=== PATIENT | female | born 1995 | race Caucasian/White ===

== ENCOUNTER 2017-02-25 15:26 | Emergency (ER) | payer BC ==
[2017-02-25 15:47] VITALS: PULSE 62; RESP 16; TEMP 97.9
[2017-02-25] MEDS ORDERED: NS 1,000 ML IV ONE (16:34)
[2017-02-25 16:36] LABS: % IMMATURE GRANULYOCYTES 0.3 % (0.0-1.1); ABSOLUTE IMMATURE GRANULOCYTES 0.02 10^3/uL (0.00-0.10); ADD DIFF? NO; ADD MORPH? NO; ADD SCAN? NO; ATYPICAL LYMPHOCYTE FLAG 10 (0-99); FRAGMENT RBC FLAG 0 (0-99); HEMOGLOBIN 13.6 g/dL (12.6-16.3); LEFT SHIFT FLG 0 (0-99); LIPEMIA HEMOLYSIS FLAG 90 (0-99); MEAN CELL HEMOGLOBIN 32.9 pg (27.9-34.1); MEAN CELL HEMOGLOBIN CONCENTR. 36.8 g/dL (32.4-36.7); MEAN CELL VOLUME 89.6 fL (81.5-99.8); MEAN PLATELET VOLUME 9.6 fL (8.7-11.7); PLATELET CLUMPS FLAG 20 (0-99); PLATELET COUNT 197 10^3/uL (150-400); RED BLOOD CELL COUNT 4.13 10^6/uL (4.18-5.33); RED CELL DISTRIBUTION WIDTH 11.4 % (11.5-15.2)
--- NOTE | 2017-02-25 16:38 | EDPHY ---
H & P Stated Complaint: abd pain nauses constipation Time Seen by Provider: 02/25/17 15:59 HPI/ROS: CHIEF COMPLAINT: Abdominal pain HISTORY OF PRESENT ILLNESS: The patient is a 21-year-old female who comes to the emergency department complaining of diffuse abdominal pain. 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 She states that she has left work early 3 times this week because of abdominal pain. She describes it as intermittent and crampy and is passing a lot of gas. She thinks that she has IBS C but has never been officially diagnosed. No fevers. No vomiting. She states that today her pain was worse than usual and she is doubled over. She has a history of liver biopsy as an for mass that was seen on her liver that was found to be benign. She denies any other significant medical history. No urinary symptoms. She denies risk of . She is on control. No vaginal bleeding or discharge REVIEW OF SYSTEMS: Constitutional: denies: chills, fever, recent illness, recent injury EENTM: denies: blurred vision, double vision, nose congestion Respiratory: denies: cough, shortness of breath Cardiac: denies: chest pain, irregular heart rate, lightheadedness, palpitations Gastrointestinal/Abdominal: See HPI Genitourinary: denies: dysuria, frequency, hematuria, pain Musculoskeletal: denies: joint pain, muscle pain Skin: denies: lesions, rash, jaundice, bruising Neurological: denies: headache, numbness, paresthesia, tingling, dizziness, weakness Hematologic/Lymphatic: denies: blood clots, easy bleeding, easy bruising Immunologic/allergic: denies: HIV/AIDS, transplant EXAM: GENERAL: Well-appearing, well-nourished and in no acute distress. HEAD: Atraumatic, normocephalic. EYES: Pupils equal round and reactive to light, extraocular movements intact, sclera anicteric, conjunctiva are normal. ENT: TMs normal, nares patent, oropharynx clear without exudates. Moist mucous membranes. NECK: Normal range of motion, supple without lymphadenopathy or JVD. LUNGS: Breath sounds clear to auscultation bilaterally and equal. No wheezes rales or rhonchi. HEART: Regular rate and rhythm without murmurs, rubs or gallops. ABDOMEN: Scar visible, Soft, nontender, normoactive bowel sounds. No guarding , no rebound. No masses appreciated. BACK: No CVA tenderness, no spinal tenderness, step-offs or deformities EXTREMITIES: Normal range of motion, no pitting or edema. No clubbing or cyanosis. NEUROLOGICAL: Cranial nerves II through XII grossly intact. Normal speech, normal gait. 5/5 strength, normal movement in all extremities, normal sensation PSYCH: Normal mood, normal affect. SKIN: Warm, dry, normal turgor, no visible rashes or lesions. Source: Patient Exam Limitations: No limitations - Personal History LMP (Females 10-55): Irregular Current Tetanus Diphtheria and Acellular Pertussis (TDAP): Yes - Medical/Surgical History Hx Asthma: No Hx Chronic Respiratory Disease: No Hx Diabetes: No Hx Cardiac Disease: No Hx Renal Disease: No Hx Cirrhosis: No Hx Alcoholism: No Hx HIV/AIDS: No Hx Splenectomy or Spleen Trauma: No Other PMH: depression, left ankle pain - Family History Significant Family History: No pertinent family hx - Social History Smoking Status: Never smoked Alcohol Use: Sober Drug Use: None Constitutional: Initial Vital Signs Temperature (C) 36.6 C 02/25/17 15:44 Heart Rate 62 02/25/17 15:44 Respiratory Rate 16 02/25/17 15:44 Blood Pressure 113/87 H 02/25/17 15:44 O2 Sat (%) 100 02/25/17 15:44 O2 Delivery Mode Room Air Allergies/Adverse Reactions: No Known Allergies Allergy (Unverified 02/25/17 15:42) Home Medications: Medication Instructions Recorded Dicyclomine [Bentyl 20 MG (*)] 20 mg PO QID PRN #30 tab 02/25/17 Linzess 02/25/17 Meloxicam 02/25/17 Microgestin 02/25/17 Prozac 10 MG (*) 02/25/17 Synthroid 02/25/17 Medical Decision Making - Diagnostics Imaging Results: Imaging Impressions Abdomen CT 02/25/17 16:34 Impression: 1. No acute findings in the abdomen or pelvis. 2. 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 3. Additional findings as above. Findings discussed with Dr. Law Chester on 02/25/2017 at 1743 hours. Imaging: Discussed imaging studies w/ crew caller Radiologist ED Course/Re-evaluation: The patient's abdominal exam is benign. I performed a bedside ultrasound revealed normal appearing gallbladder with no stones. I will obtain a CT scan because of her right lower quadrant pain evaluated previously by her PCP 5:50 p.m. the patient is feeling better. She still has cramping pain. I will treat her with Toradol in bed until. We discussed the CT and lab results which are reassuring. She is happy but is frustrated that we do not have an answer. Father is a oncologist. 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 I will refer her to GI. She knows Dr. Alejo personally. She understands and agrees with this plan. She declines further workup at this time. Differential Diagnosis: Partial list of the Differential diagnosis considered include but were not limited to; gallstone, constipation, irritable bowel disease and although unlikely based on the history and physical exam, I also considered appendicitis , cholecystitis, kidney stone, urinary tract infection, , ovarian cyst , ovarian torsion. I discussed these differential diagnoses and the plan with the patient as well as the usual and expected course. The patient understands that the diagnosis is provisional and that in medicine we are not always correct and that further workup is often warranted. Usual and customary warnings were given. All of the patient's questions were answered. The patient was instructed to return to the emergency department should the symptoms at all worsen or return, otherwise to followup with the physician as we discussed. - Data Points Laboratory Results: Laboratory Results 02/25/17 16:26 02/25/17 16:26 02/25/17 02/25/17 02/25/17 16:26 16:26 16:26 WBC RBC Hgb Hct MCV MCH MCHC RDW Plt Count MPV Neut % (Auto) Lymph % (Auto) Yell % (Auto) Eos % (Auto) Baso % (Auto) Nucleat RBC Rel Count Absolute Neuts (auto) Absolute Lymphs (auto) Absolute Monos (auto) Absolute Eos (auto) Absolute Basos (auto) Absolute Nucleated RBC Immature Gran % Immature Gran # Sodium Potassium Chloride Carbon Dioxide Anion Gap BUN Creatinine Estimated GFR Glucose Calcium Total Bilirubin Cancelled Conjugated Bilirubin Cancelled Unconjugated Bilirubin Cancelled AST Cancelled ALT Cancelled Alkaline Phosphatase Cancelled Total Protein Cancelled Albumin Cancelled Lipase Cancelled Beta HCG, Qual NEGATIVE Beta HCG, Quant Urine Color YELLOW Urine Appearance HAZY Urine pH 6.0 (5.0-7.5) Ur Specific Beatrice 1.019 (1.002-1.030) Urine Protein NEGATIVE (NEGATIVE) Urine Ketones NEGATIVE (NEGATIVE) Urine Blood NEGATIVE (NEGATIVE) Urine Nitrate NEGATIVE (NEGATIVE) Urine Bilirubin NEGATIVE (NEGATIVE) Urine Urobilinogen NEGATIVE EU EU (0.2-1.0) Ur Leukocyte Esterase 1+ H (NEGATIVE) Urine RBC 1-3 /hpf /hpf (0-3) Urine WBC 1-3 /hpf /hpf (0-3) Ur Epithelial Cells TRACE /lpf /lpf (NONE-1+) Ur Renal Epithelial Cell Urine Crystals Ammonium Urate Crystals Calcium Carbonate Cryst Calcium Phosphate Cryst Calcium Oxalate Crystal Leucine Crystals Cystine Crystals Uric Acid Crystals Triple Phos Crystals Sulfonamide Crystals Cholesterol Crystals Tyrosine Crystals Bilirubin Crystals Amorphous Sediment Urine Bacteria Epithelial Casts Fatty Casts Hyaline Casts Granular Casts Waxy Casts Broad Casts RBC Casts WBC Casts Urine Mucus TRACE /lpf /lpf (NONE-1+) Urine Trichomonas Urine Yeast Urine Sperm Ur Oval Fat Bodies Ur Free Fat Droplets Urine Glucose NEGATIVE (NEGATIVE) Urine Comment 02/25/17 02/25/17 02/25/17 16:26 16:26 16:22 WBC 7.45 10^3/uL 10^3/uL (3.80-9.50) RBC 4.13 10^6/uL L 10^6/uL (4.18-5.33) Hgb 13.6 g/dL g/dL (12.6-16.3) Hct 37.0 % L % (38.0-47.0) MCV 89.6 fL fL (81.5-99.8) MCH 32.9 pg pg (27.9-34.1) MCHC 36.8 g/dL H g/dL (32.4-36.7) RDW 11.4 % L % (11.5-15.2) Plt Count 197 10^3/uL 10^3/uL (150-400) MPV 9.6 fL fL (8.7-11.7) Neut % (Auto) 69.8 % % (39.3-74.2) Lymph % (Auto) 21.5 % % (15.0-45.0) Yell % (Auto) 5.4 % % (4.5-13.0) Eos % (Auto) 2.6 % % (0.6-7.6) Baso % (Auto) 0.4 % % (0.3-1.7) Nucleat RBC Rel Count 0.0 % % (0.0-0.2) Absolute Neuts (auto) 5.21 10^3/uL 10^3/uL (1.70-6.50) Absolute Lymphs (auto) 1.60 10^3/uL 10^3/uL (1.00-3.00) Absolute Monos (auto) 0.40 10^3/uL 10^3/uL (0.30-0.80) Absolute Eos (auto) 0.19 10^3/uL 10^3/uL (0.03-0.40) Absolute Basos (auto) 0.03 10^3/uL 10^3/uL (0.02-0.10) Absolute Nucleated RBC 0.00 10^3/uL 10^3/uL (0-0.01) Immature Gran % 0.3 % % (0.0-1.1) Immature Gran # 0.02 10^3/uL 10^3/uL (0.00-0.10) Sodium 140 mEq/L mEq/L (134-144) Potassium 4.2 mEq/L mEq/L (3.5-5.2) Chloride 102 mEq/L mEq/L (97-110) Carbon Dioxide 27 mEq/l mEq/l (22-31) Anion Gap 11 mEq/L mEq/L (8-16) BUN 14 mg/dL mg/dL (7-23) Creatinine 0.9 mg/dL mg/dL (0.6-1.0) Estimated GFR > 60 Glucose 106 mg/dL H mg/dL (70-100) Calcium 9.1 mg/dL mg/dL (8.5-10.4) Total Bilirubin 0.5 mg/dL mg/dL (0.1-1.4) Conjugated Bilirubin 0.3 mg/dL mg/dL (0.0-0.5) Unconjugated Bilirubin 0.2 mg/dL mg/dL (0.0-1.1) AST 28 IU/L IU/L (14-46) ALT 36 IU/L IU/L (9-52) Alkaline Phosphatase 44 IU/L IU/L (38-126) Total Protein 6.8 g/dL g/dL (6.3-8.2) Albumin 3.9 g/dL g/dL (3.5-5.0) Lipase 132 IU/L IU/L (23-300) Beta HCG, Qual Beta HCG, Quant < 2.39 mIU/mL mIU/mL (0.00-4.83) Urine Color Urine Appearance Urine pH Ur Specific Beatrice Urine Protein Urine Ketones Urine Blood Urine Nitrate Urine Bilirubin Urine Urobilinogen Ur Leukocyte Esterase Urine RBC Cancelled Urine WBC Cancelled Ur Epithelial Cells Cancelled Ur Renal Epithelial Cell Cancelled Urine Crystals Cancelled Ammonium Urate Crystals Cancelled Calcium Carbonate Cryst Cancelled Calcium Phosphate Cryst Cancelled Calcium Oxalate Crystal Cancelled Leucine Crystals Cancelled Cystine Crystals Cancelled Uric Acid Crystals Cancelled Triple Phos Crystals Cancelled Sulfonamide Crystals Cancelled Cholesterol Crystals Cancelled Tyrosine Crystals Cancelled Bilirubin Crystals Cancelled Amorphous Sediment Cancelled Urine Bacteria Cancelled Epithelial Casts Cancelled Fatty Casts Cancelled Hyaline Casts Cancelled Granular Casts Cancelled Waxy Casts Cancelled Broad Casts Cancelled RBC Casts Cancelled WBC Casts Cancelled Urine Mucus Cancelled Urine Trichomonas Cancelled Urine Yeast Cancelled Urine Sperm Cancelled Ur Oval Fat Bodies Cancelled Ur Free Fat Droplets Cancelled Urine Glucose Urine Comment Cancelled Medications Given: Discontinued Medications Dicyclomine HCl (Bentyl) 20 mg PO EDNOW ONE Stop: 02/25/17 17:50 Last Admin: 02/25/17 17:53 Dose: 20 mg Sodium Chloride (Ns) 1,000 mls @ 0 mls/hr IV EDNOW ONE; Wide Open PRN Reason: Protocol Stop: 02/25/17 16:35 Last Admin: 02/25/17 16:47 Dose: 1,000 mls Ketorolac Tromethamine (Toradol) 30 mg IVP EDNOW ONE Stop: 02/25/17 17:50 Last Admin: 02/25/17 17:53 Dose: 30 mg Departure - Departure Disposition: Home, Routine, Self-Care Clinical Impression: Abdominal pain Qualifiers: Abdominal location: generalized Qualified Code(s): R10.84 - Generalized abdominal pain Condition: Fair Instructions: Acute Abdominal Pain (ED) Referrals: Estefani Garcia MD [Primary Care Provider] - As per Instructions Norman Alejo MD [[facility] [place] Primary Care Provider] - As per Instructions Prescriptions: Dicyclomine [Bentyl 20 MG (*)] 20 mg PO QID PRN #30 tab PRN Reason: Abdominal cramping
[2017-02-25 16:40] LABS: COLOR YELLOW; LEUKOCYTE ESTERASE,URINE 1+ (NEGATIVE); NITRITE,URINE NEGATIVE (NEGATIVE)
[2017-02-25 16:47] LABS: ANION GAP 11 mEq/L (8-16); CALCIUM 9.1 mg/dL (8.5-10.4); CARBON DIOXIDE 27 mEq/l (22-31); CHLORIDE 102 mEq/L (97-110); CREATININE 0.9 mg/dL (0.6-1.0); GLOMERULAR FILTRATION RATE > 60; GLUCOSE 106 mg/dL (70-100); POTASSIUM 4.2 mEq/L (3.5-5.2); SODIUM 140 mEq/L (134-144)
[2017-02-25 16:52] LABS: MUCUS TRACE /lpf (NONE-1+)
[2017-02-25 17:01] LABS: ALANINE AMINOTRANSFERASE 36 IU/L (9-52); ALBUMIN 3.9 g/dL (3.5-5.0); ALKALINE PHOSPHATASE 44 IU/L (38-126); ASPARTATE AMINOTRANSFERASE 28 IU/L (14-46); BILIRUBIN,TOTAL 0.5 mg/dL (0.1-1.4); BILIRUBIN-CONJUGATED 0.3 mg/dL (0.0-0.5); BILIRUBIN-UNCONJUGATED 0.2 mg/dL (0.0-1.1); TOTAL PROTEIN 6.8 g/dL (6.3-8.2)
[2017-02-25] MEDS ORDERED: IOPAMIDOL (ISOVUE-300) 100 ML BTL ONE (17:10)
[2017-02-25] MEDS ORDERED: DICYCLOMINE 10 MG CAP PO ONE (17:49)
[2017-02-25] MEDS ORDERED: KETOROLAC 30 MG/1 ML SDV IVP ONE (17:49)
[2017-02-25 18:01] VITALS: BP 111/54; O2SAT 99
== END 2017-02-25 18:10 | disposition home or self-care (01) ==
PROC: 3E0337Z Introduction of Electrolytic and Water Balance Substance into Peripheral Vein, Percutaneous Approach (ICD-10-PCS; principal; 2017-02-25)
DX: R10.84 Generalized abdominal pain (principal); E86.9 Volume depletion, unspecified
CPT/HCPCS: 96374; J1885; Q9967

== ENCOUNTER → 2017-07-28 | Outpatient (CLI) | payer BC | LOC: FIMAGING 08:18 | PROVIDERS: ATTEND Family Medicine | DX: R10.84 Generalized abdominal pain (principal) | CPT/HCPCS: A9537 ==

== ENCOUNTER → 2017-08-10 | Outpatient (CLI) | payer BC | LOC: BMCIMAGING 07:18 | PROVIDERS: ATTEND Surgery | DX: R93.2 Abnormal findings on diagnostic imaging of liver and biliary tract (principal); R10.9 Unspecified abdominal pain ==

== ENCOUNTER → 2018-06-22 | Outpatient (CLI) | payer BC | LOC: BMCIMAGING 11:50 | PROVIDERS: ATTEND Podiatrist Foot & Ankle Surgery | DX: M79.672 Pain in left foot (principal); M79.671 Pain in right foot; Q66.7 Congenital pes cavus; Z98.1 Arthrodesis status ==

== ENCOUNTER → 2018-07-20 | Outpatient (CLI) | payer BC | LOC: FIMAGING 07:03 | PROVIDERS: ATTEND Podiatrist Foot & Ankle Surgery | DX: M79.671 Pain in right foot (principal); M79.672 Pain in left foot ==